=== PATIENT | male | born 1985 | race Hispanic/Latino ===

== ENCOUNTER 2019-02-08 16:20 | Emergency (ER) | payer SELFPAY ==
--- OUTSIDE RECORDS SUMMARY | 2019-02-08 16:22 | XMS REPORT ---
:1985 [facility] Address [address] Carmichael [address] [place] [id number] Care Team Providers Name Role Phone Unavailable Unavailable Unavailable Problems This patient has no known problems. Allergies, Adverse Reactions, Alerts This patient has no known allergies or adverse reactions. Medications This patient has no known medications.
[2019-02-08] MEDS ORDERED: IBUPROFEN 400 MG TAB ONE (16:42)
[2019-02-08] MEDS ORDERED: HYDROCODONE/APAP 7.5/325 MG TAB ONE (16:42)
--- NOTE | 2019-02-08 17:33 | RAD REPORT ---
EXAM DESCRIPTION: RAD - Hand Left 3 View - 02/08/2019 5:23 pm CLINICAL HISTORY: crush injury;Pain COMPARISON: No comparisons FINDINGS: Fracture is present involving the proximal aspect of the proximal phalanx of the second fi nger. Mild adjacent soft tissue swelling.
--- NOTE | 2019-02-08 17:59 | ER ---
Nurse's Notes [facility] Name: Celso Resendiz Age: 33 yrs Sex: Male : 1985 Arrival Date: 02/08/2019 Time: 16:22 Bed 14 Private MD: Diagnosis: Nondisplaced fracture of proximal phalanx of right index finger Presentation: 02/08 16:27 Presenting complaint: Patient states: dropped a 65lb piece of metal on L hand approx ch 1400. Transition of care: patient was not received from another setting of care. Onset of symptoms was February 08, 2019 at 14:00. Risk Assessment: Do you want to hurt yourself or someone else? Patient reports no desire to harm self or others. Initial Sepsis Screen: Does the patient meet any 2 criteria? No. Patient's initial sepsis screen is negative. Does the patient have a suspected source of infection? No. Patient's initial sepsis screen is negative. Care prior to arrival: None. 16:27 Method Of Arrival: Ambulatory 16:27 Acuity: ELENA 4 ch Triage Assessment: 16:29 General: Appears in no apparent distress. uncomfortable, Behavior is calm, cooperative, ch appropriate for age. Pain: Complains of pain in left hand Pain currently is 8 out of 10 on a pain scale. Musculoskeletal: Capillary refill < 3 seconds, in bilateral fingers. toes. Range of motion: limited in MCP of left middle finger, PIP of left index finger and MCP of left index finger Swelling present in left hand. Injury Description: Crush injury sustained to left hand was sustained 2-4 hours ago. Historical: - Allergies: 16:29 Tramadol HCl; causes migranes; - Home Meds: 16:29 None [Active]; ch - PMHx: 16:29 None; - PSHx: 16:29 Hernia repair; Appendectomy; Tonsillectomy; - Immunization history:: Adult Immunizations up to date, Last tetanus immunization: > 10 years ago Flu vaccine is not up to date. - Social history:: Smoking status: Patient/guardian denies using tobacco. - Ebola Screening: : Patient negative for fever greater than or equal to 101.5 degrees Fahrenheit, and additional compatible Ebola Virus Disease symptoms Patient denies exposure to infectious person Patient denies travel to an Ebola-affected area in the 21 days before illness onset No symptoms or risks identified at this time. Screenin:43 Abuse screen: Denies threats or abuse. Denies injuries from another. Nutritional jl7 screening: No deficits noted. Tuberculosis screening: No symptoms or risk factors identified. Fall Risk None identified. Assessment: 16:43 General: Appears in no apparent distress. uncomfortable, Behavior is calm, cooperative, jl7 appropriate for age. Pain: Complains of pain in left hand Pain currently is 9 out of 10 on a pain scale. Neuro: Level of Consciousness is awake, alert, obeys commands, Oriented to person, place, time, situation. Cardiovascular: Patient's skin is warm and dry. Respiratory: Airway is patent Respiratory effort is even, unlabored, Respiratory pattern is regular, symmetrical. Derm: Skin is pink, warm \T\ dry. Musculoskeletal: Range of motion: limited in DIP of left index finger, PIP of left index finger and MCP of left index finger Swelling present in palmar aspect of proximal phalanx of left index finger and palm of left hand. 16:46 Reassessment: ice pack applied to injury. jl7 17:33 Reassessment: Patient appears in no apparent distress at this time. No changes from jl7 previously documented assessment. Pt reports unchanged pain, ERP notified, no new orders at this time. Vital Signs: 16:29 BP 135 / 86; Pulse 78; Resp 16; Temp 98.5; Pulse Ox 99% on R/A; Weight 74.39 kg; Height ch 6 ft. 2 in. (187.96 cm); Pain 8/10; 17:45 BP 130 / 85; Pulse 75; Resp 16 S; Pulse Ox 100% on R/A; jl7 16:29 Body Mass Index 21.06 (74.39 kg, 187.96 cm) ED Course: 16:22 Patient arrived in ED. as 16:23 Braxton Herrmann PA is PHCP. cp 16:23 Drew Wilkerson MD is Attending Physician. cp 16:28 Triage completed. 16:29 Arm band placed on left wrist. Patient placed in an exam room, on a stretcher. 16:39 Luna Parker RN is Primary Nurse. jl7 16:43 Patient has correct armband on for positive identification. Bed in low position. Call [facility] light in reach. Side rails up X 1. 17:26 XRAY Hand LEFT 3 View In Process Unspecified. EDMS 17:57 Tong Shepard MD is Referral Physician. cp 18:00 Orthoglass splint: finger. jl7 18:08 No provider procedures requiring assistance completed. Patient did not have IV access jl7 during this emergency room visit. Administered Medications: 16:43 Drug: Hydrocodone-Acetaminophen (7.5 mg-500 mg) 1 tabs Route: PO; jl7 17:31 Follow up: Response: No adverse reaction; Pain is unchanged, physician notified jl7 16:43 Drug: Ibuprofen 800 mg Route: PO; jl7 17:31 Follow up: Response: Pain is unchanged, physician notified jl7 Outcome: 17:58 Discharge ordered by MD. cp 18:14 Discharged to home jl7 18:14 Condition: stable 18:14 Discharge instructions given to patient, Instructed on discharge instructions, follow up and referral plans. medication usage, Demonstrated understanding of instructions, follow-up care, medications, Prescriptions given X 1. 18:16 Patient left the ED. jl7 Signatures: Dispatcher [employer] EDLela Ryan, RN RN Melinda Christensen Corey, PA PA Luna Russo, RN RN jl7
--- NOTE | 2019-02-08 17:59 | EDPHYS ---
Physician Documentation [facility] Name: Celso Resendiz Age: 33 yrs Sex: Male : 1985 Arrival Date: 02/08/2019 Time: 16:22 Bed 14 Private MD: ED Physician Drew Wilkerson HPI: 02/08 16:45 This 33 yrs old Male presents to ER via Ambulatory with complaints of Hand cp Injury. 16:45 The patient or guardian reports injury, pain, swelling, tenderness. The complaints cp affect the right index finger and second metacarpal. Onset: The symptoms/episode began/occurred just prior to arrival. 16:45 Context: resulted from direct blow from dropped 65 lb piece of metal. cp 16:45 Associated signs and symptoms: Pertinent negatives: cyanosis distally, decreased cp sensation distally. Historical: - Allergies: 16:29 Tramadol HCl; causes migranes; ch - Home Meds: 16:29 None [Active]; ch - PMHx: 16:29 None; ch - PSHx: 16:29 Hernia repair; Appendectomy; Tonsillectomy; ch - Immunization history:: Adult Immunizations up to date, Last tetanus immunization: > 10 years ago Flu vaccine is not up to date. - Social history:: Smoking status: Patient/guardian denies using tobacco. - Ebola Screening: : Patient negative for fever greater than or equal to 101.5 degrees Fahrenheit, and additional compatible Ebola Virus Disease symptoms Patient denies exposure to infectious person Patient denies travel to an Ebola-affected area in the 21 days before illness onset No symptoms or risks identified at this time. ROS: 17:00 Constitutional: Negative for body aches, chills, fever, poor PO intake. cp 17:00 Respiratory: Negative for cough, shortness of breath, wheezing. cp 17:00 Abdomen/GI: Negative for abdominal pain. 17:00 MS/extremity: Positive for injury or acute deformity, decreased range of motion, pain, of the dorsum left hand and MCP of left index finger and PIP of left index finger. 17:00 Neuro: Negative for altered mental status, headache, numbness, tingling, weakness. 17:00 All other systems are negative. Exam: 17:10 Constitutional: The patient appears in no acute distress, alert, awake, well developed, cp well nourished, uncomfortable. 17:10 Head/Face: Normocephalic, atraumatic. cp 17:10 Eyes: Periorbital structures: appear normal, Conjunctiva: normal, no exudate, no injection, Lids and lashes: appear normal, bilaterally. 17:10 ENT: External ear(s): are unremarkable, Nose: is normal, Mouth: is normal, Posterior pharynx: is normal, airway is patent, no erythema, no exudate. 17:10 Chest/axilla: Inspection: normal. 17:10 Cardiovascular: Rate: normal. 17:10 Respiratory: the patient does not display signs of respiratory distress, Respirations: normal, no use of accessory muscles, no retractions, no splinting, no tachypnea. 17:10 Musculoskeletal/extremity: Extremities: grossly normal except: noted in the MCP of left index finger and PIP of left index finger and dorsum left hand: Perfusion: the extremity is normally perfused throughout, Sensation intact. swelling proximal phalanx left index finger. 17:10 Musculoskeletal/extremity: ROM: limited active range of motion, in the left index finger. 17:10 Skin: intact. 17:10 Neuro: Sensation: Vital Signs: 16:29 BP 135 / 86; Pulse 78; Resp 16; Temp 98.5; Pulse Ox 99% on R/A; Weight 74.39 kg; Height ch 6 ft. 2 in. (187.96 cm); Pain 8/10; 17:45 BP 130 / 85; Pulse 75; Resp 16 S; Pulse Ox 100% on R/A; jl7 16:29 Body Mass Index 21.06 (74.39 kg, 187.96 cm) Procedures: 18:00 Splinting: Splint applied to left index and middle fingers using Orthoglass splint, cp sugar tong type. applied by nurse. Examined by me, post splint application: neurovascular intact, Patient tolerated well. MDM: 16:35 Patient medically screened. cp 17:57 Data reviewed: vital signs, nurses notes, radiologic studies, plain films. cp 17:57 Test interpretation: by ED physician or midlevel provider: xrays of left hand show cp proximal phalanx fracture left index finger. Counseling: I had a detailed discussion with the patient and/or guardian regarding: the historical points, exam findings, and any diagnostic results supporting the discharge/admit diagnosis, radiology results, the need for outpatient follow up, for definitive care, a hand specialist, to return to the emergency department if symptoms worsen or persist or if there are any questions or concerns that arise at home. Response to treatment: the patient's symptoms have markedly improved after treatment, and as a result, I will discharge patient. 02/08 17:02 Order name: XRAY Hand LEFT 3 View; Complete Time: 17:57 cp 02/08 18:07 Order name: Splint - Finger: orthoglass; Complete Time: 18:08 jl7 Administered Medications: 16:43 Drug: Hydrocodone-Acetaminophen (7.5 mg-500 mg) 1 tabs Route: PO; jl7 17:31 Follow up: Response: No adverse reaction; Pain is unchanged, physician notified jl7 16:43 Drug: Ibuprofen 800 mg Route: PO; jl7 17:31 Follow up: Response: Pain is unchanged, physician notified jl7 Disposition: 18:25 Chart complete. cp 18:49 Co-signature as Attending Physician, Drew Wilkerson MD. rn Disposition: 02/08/19 17:58 Discharged to Home. Impression: Nondisplaced fracture of proximal phalanx of right index finger. - Condition is Stable. - Discharge Instructions: Finger Fracture. - Prescriptions for Ibuprofen 800 mg Oral Tablet - take 1 tablet by ORAL route every 8 hours As needed take with food; 30 tablet. Tylenol- Codeine #3 300-30 mg Oral Tablet - take 2 tablets by ORAL route every 6 hours As needed no driving while taking medication; 20 tablet. - Medication Reconciliation Form, Thank You Letter, Antibiotic Education, Prescription Opioid Use, Work release form form. - Follow up: Tong Shepard MD; When: 1 - 2 days; Reason: Recheck today's complaints. - Problem is new. - Symptoms have improved. Signatures: Dispatcher [employer] Lela Hamilton RN RN ch Nieto, Roman, MD MD rn Page, Corey, PA PA cp Leal, Jahala, RN RN jl7 Corrections: (The following items were deleted from the chart) 18:16 17:58 02/08/2019 17:58 Discharged to Home. Impression: Nondisplaced fracture of jl7 proximal phalanx of right index finger. Condition is Stable. Forms are Medication Reconciliation Form, Thank You Letter, Antibiotic Education, Prescription Opioid Use. Follow up: Tong Shepard; When: 1 - 2 days; Reason: Recheck today's complaints. Problem is new. Symptoms have improved. cp
== END 2019-02-08 18:16 | disposition home or self-care (01) ==
LOC: ER 16:20
PROC: 2W3KX1Z Immobilization of Left Finger using Splint (ICD-10-PCS; principal; 2019-02-08)
DX: S62.641A Nondisplaced fracture of proximal phalanx of left index finger, initial encounter for closed fracture (principal); X58.XXXA Exposure to other specified factors, initial encounter; Y93.9 Activity, unspecified; Y92.9 Unspecified place or not applicable; Z88.6 Allergy status to analgesic agent
CPT/HCPCS: 99284

== ENCOUNTER 2019-02-19 21:43 | Emergency (ER) | payer SELFPAY ==
--- OUTSIDE RECORDS SUMMARY | 2019-02-19 21:45 | XMS REPORT ---
:1985 [facility] Address [address] Carmichael [address] [place] [id number] Care Team Providers Name Role Phone Unavailable Unavailable Unavailable Problems This patient has no known problems. Allergies, Adverse Reactions, Alerts This patient has no known allergies or adverse reactions. Medications This patient has no known medications.
[2019-02-19] MEDS ORDERED: KETOROLAC 30 MG/ML INJ ONE (22:22)
--- NOTE | 2019-02-19 22:25 | ER ---
Nurse's Notes [facility] Name: Celso Resendiz Age: 33 yrs Sex: Male : 1985 Arrival Date: 02/19/2019 Time: 21:48 Bed 10 Private MD: Diagnosis: Displaced fracture of proximal phalanx of left index finger Presentation: 02/19 21:55 Presenting complaint: Patient states: increased pain to left index finger. pt was seen ak1 on 02/08/19 for work related injury. pt seen by company PCP with no new pain medication given. pt stated he finished the tylenol #3 that the ER gave him. pt continues to have pain. Transition of care: patient was not received from another setting of care. Onset of symptoms is unknown. Risk Assessment: Do you want to hurt yourself or someone else? Patient reports no desire to harm self or others. Initial Sepsis Screen: Does the patient meet any 2 criteria? No. Patient's initial sepsis screen is negative. Does the patient have a suspected source of infection? No. Patient's initial sepsis screen is negative. Care prior to arrival: None. 21:55 Method Of Arrival: Ambulatory ak1 21:55 Acuity: ELENA 4 ak1 Triage Assessment: 21:57 General: Appears in no apparent distress. Behavior is calm, cooperative. ak1 22:16 Injury Description: pt reported braking finger earlier in the week. jd3 Historical: - Allergies: 21:57 Tramadol HCl; causes migranes; ak1 - Home Meds: 21:57 None [Active]; ak1 - PMHx: 21:57 None; ak1 - PSHx: 21:57 Hernia repair; Appendectomy; Tonsillectomy; ak1 - Immunization history:: Adult Immunizations unknown. - Social history:: Smoking status: Patient uses tobacco products, smokes one pack cigarettes per day. - Ebola Screening: : No symptoms or risks identified at this time. Screenin:16 Abuse screen: Denies threats or abuse. Nutritional screening: No deficits noted. jd3 Tuberculosis screening: No symptoms or risk factors identified. Fall Risk Ambulatory Aid- None/Bed Rest/Nurse Assist (0 pts). Gait- Normal/Bed Rest/Wheelchair (0 pts) Mental Status- Oriented to own ability (0 pts). Total Rodriguez Fall Scale indicates No Risk (0-24 pts). Assessment: 22:15 General: Appears in no apparent distress. uncomfortable, Behavior is calm, cooperative, jd3 appropriate for age. Pain: Complains of pain in right index finger Quality of pain is described as aching, tender, throbbing. Neuro: Level of Consciousness is awake, alert, obeys commands, Oriented to person, place, time, situation. Cardiovascular: Capillary refill < 3 seconds Patient's skin is warm and dry. Respiratory: Airway is patent Respiratory effort is even, unlabored, Respiratory pattern is regular, symmetrical. GI: No signs and/or symptoms were reported involving the gastrointestinal system. : No signs and/or symptoms were reported regarding the genitourinary system. EENT: No signs and/or symptoms were reported regarding the EENT system. Derm: Skin is intact, Skin is dry, Skin is normal, Skin temperature is warm. Musculoskeletal: Circulation, motion, and sensation intact. Range of motion: intact in all extremities, Swelling present in left index finger. 22:50 Reassessment: Patient appears in no apparent distress at this time. Patient and/or jd3 family updated on plan of care and expected duration. Pain level reassessed. Patient is alert, oriented x 3, equal unlabored respirations, skin warm/dry/pink. reported understanding of discharge instructions. Patient states feeling better. Vital Signs: 21:57 BP 113 / 77; Pulse 82; Resp 16; Temp 97.6; Pulse Ox 99% on R/A; Weight 74.84 kg (R); ak1 Height 6 ft. 2 in. (187.96 cm) (R); Pain 8/10; 21:57 Body Mass Index 21.18 (74.84 kg, 187.96 cm) ak1 ED Course: 21:48 Patient arrived in ED. cl3 21:57 Triage completed. ak1 21:57 Arm band placed on Patient placed in an exam room, on a stretcher, Patient notified of ak1 wait time. 22:01 Farhan Haywood MD is Attending Physician. tw4 22:15 Kaushik Lai RN is Primary Nurse. jd3 22:17 Patient has correct armband on for positive identification. Bed in low position. Call jd3 light in reach. Side rails up X 1. 22:25 Daniel Hamilton MD is Referral Physician. tw4 22:37 No provider procedures requiring assistance completed. Patient did not have IV access jd3 during this emergency room visit. 22:37 Aluminum finger splint applied to left index finger. jd3 Administered Medications: 22:37 Drug: TORadol 60 mg Route: IM; Site: right gluteus; jd3 22:49 Follow up: Response: No adverse reaction jd3 Outcome: 22:24 Discharge ordered by . tw4 22:49 Discharged to home ambulatory. jd3 22:49 Condition: stable 22:49 Discharge instructions given to patient, Instructed on discharge instructions, follow up and referral plans. medication usage, Demonstrated understanding of instructions, follow-up care, medications, Prescriptions given X 2. 22:50 Patient left the ED. jd3 Signatures: Emilie Naidu RN RN ak1 Kaushik Lai RN RN jd3 Farhan Haywood MD MD tw4 Rena Parker cl3
--- NOTE | 2019-02-19 22:26 | EDPHYS ---
Physician Documentation [facility] Name: Celso Resendiz Age: 33 yrs Sex: Male : 1985 Arrival Date: 02/19/2019 Time: 21:48 Bed 10 Private MD: ED Physician Farhan Haywood HPI: 02/19 22:20 This 33 yrs old Male presents to ER via Ambulatory with complaints of Finger tw4 Injury. 22:20 The patient or guardian reports deformity, injury, pain. The complaints affect the DIP tw4 of left index finger, PIP of left index finger and MCP of left index finger. Context: The problem was sustained at work, resulted from a direct blow. Onset: The symptoms/episode began/occurred 10 day(s) ago. Modifying factors: The symptoms are alleviated by tylenol #3. Associated signs and symptoms: The patient has no apparent associated signs or symptoms. The patient has not experienced similar symptoms in the past. The patient has been recently seen at the [facility] Emergency Department, a couple of weeks ago, for similar complaints X-rays were performed, was given a prescription for pain medications. Historical: - Allergies: 21:57 Tramadol HCl; causes migranes; ak1 - Home Meds: 21:57 None [Active]; ak1 - PMHx: 21:57 None; ak1 - PSHx: 21:57 Hernia repair; Appendectomy; Tonsillectomy; ak1 - Immunization history:: Adult Immunizations unknown. - Social history:: Smoking status: Patient uses tobacco products, smokes one pack cigarettes per day. - Ebola Screening: : No symptoms or risks identified at this time. ROS: 22:20 Constitutional: Negative for fever, chills, and weight loss, Eyes: Negative for injury, tw4 pain, redness, and discharge, Neck: Negative for injury, pain, and swelling, Cardiovascular: Negative for chest pain, palpitations, and edema, Respiratory: Negative for shortness of breath, cough, wheezing, and pleuritic chest pain, Abdomen/GI: Negative for abdominal pain, nausea, vomiting, diarrhea, and constipation, Skin: Negative for injury, rash, and discoloration, Neuro: Negative for headache, weakness, numbness, tingling, and seizure. 22:20 MS/extremity: Positive for injury or acute deformity, pain, tenderness. Exam: 22:20 Constitutional: This is a well developed, well nourished patient who is awake, alert, tw4 and in no acute distress. Head/Face: Normocephalic, atraumatic. Chest/axilla: Normal chest wall appearance and motion. Nontender with no deformity. No lesions are appreciated. Cardiovascular: Regular rate and rhythm with a normal S1 and S2. No gallops, murmurs, or rubs. Normal PMI, no JVD. No pulse deficits. Respiratory: Lungs have equal breath sounds bilaterally, clear to auscultation and percussion. No rales, rhonchi or wheezes noted. No increased work of breathing, no retractions or nasal flaring. Abdomen/GI: Soft, non-tender, with normal bowel sounds. No distension or tympany. No guarding or rebound. No evidence of tenderness throughout. Back: No spinal tenderness. No costovertebral tenderness. Full range of motion. 22:20 Musculoskeletal/extremity: Extremities: noted in the dorsal aspect of middle phalanx of left index finger, dorsal aspect of proximal phalanx of left index finger, palmar aspect of distal phalanx of left index finger, palmar aspect of middle phalanx of left index finger and palmar aspect of proximal phalanx of left index finger: decreased ROM, deformity, pain, swelling, tenderness, There is no evidence of abrasion, bite, ecchymosis, erythema, laceration, puncture, rash, ROM: limited active range of motion due to pain, limited passive range of motion due to pain, Circulation is intact in all extremities. Vital Signs: 21:57 BP 113 / 77; Pulse 82; Resp 16; Temp 97.6; Pulse Ox 99% on R/A; Weight 74.84 kg (R); ak1 Height 6 ft. 2 in. (187.96 cm) (R); Pain 8/10; 21:57 Body Mass Index 21.18 (74.84 kg, 187.96 cm) ak1 Procedures: 22:20 Splinting: Splint applied to dorsal aspect of middle phalanx of left index finger, tw4 dorsal aspect of proximal phalanx of left index finger and left index fingernail using finger splint, applied by nurse. Examined by me, post splint application: neurovascular intact, 2+ distal pulses palpable, brisk capillary refill noted, Patient tolerated well. MDM: 22:01 Patient medically screened. tw4 22:20 Differential diagnosis: open fracture, closed fracture, contusion. Data reviewed: vital tw4 signs, nurses notes. Counseling: I had a detailed discussion with the patient and/or guardian regarding: the historical points, exam findings, and any diagnostic results supporting the discharge/admit diagnosis, the need for outpatient follow up, a hand specialist, a orthopedic surgeon. Special discussion: I discussed with the patient/guardian in detail that at this point there is no indication for admission to the hospital. It is understood, however, that if the symptoms persist or worsen the patient needs to return immediately for re-evaluation. 02/19 22:13 Order name: Splint - Finger; Complete Time: 22:37 tw4 Administered Medications: 22:37 Drug: TORadol 60 mg Route: IM; Site: right gluteus; jd3 22:49 Follow up: Response: No adverse reaction jd3 Disposition: 02/19/19 22:24 Discharged to Home. Impression: Displaced fracture of proximal phalanx of left index finger. - Condition is Stable. - Discharge Instructions: Finger Fracture, [id number]. - Prescriptions for Ibuprofen 800 mg Oral Tablet - take 1 tablet by ORAL route every 8 hours As needed take with food; 30 tablet. Tylenol- Codeine #3 300-30 mg Oral Tablet - take 2 tablet by ORAL route every 6 hours As needed; 6 tablet. - Medication Reconciliation Form, Thank You Letter, Antibiotic Education, Prescription Opioid Use form. - Follow up: Private Physician; When: Upon discharge from the Emergency Department; Reason: If symptoms return, Recheck today's complaints, Continuance of care. Follow up: Daniel Hamilton MD; When: Today; Reason: If symptoms return, Recheck today's complaints, Continuance of care. - Problem is new. - Symptoms have improved. Signatures: Emilie Naidu RN RN ak1 Kaushik Lai RN RN jd3 Farhan Haywood MD MD tw4 Corrections: (The following items were deleted from the chart) 22:26 22:24 02/19/2019 22:24 Discharged to Home. Impression: Displaced fracture of proximal tw4 phalanx of left index finger. Condition is Stable. Forms are Medication Reconciliation Form, Thank You Letter, Antibiotic Education, Prescription Opioid Use. Follow up: Private Physician; When: Upon discharge from the Emergency Department; Reason: If symptoms return, Recheck today's complaints, Continuance of care. Problem is new. Symptoms have improved. tw4 22:50 22:26 02/19/2019 22:24 Discharged to Home. Impression: Displaced fracture of proximal jd3 phalanx of left index finger. Condition is Stable. Discharge Instructions: Finger Fracture, [id number]-Size. Prescriptions for Ibuprofen 800 mg Oral Tablet - take 1 tablet by ORAL route every 8 hours As needed take with food; 30 tablet, Tylenol-Codeine #3 300-30 mg Oral Tablet - take 2 tablet by ORAL route every 6 hours As needed; 6 tablet. and Forms are Medication Reconciliation Form, Thank You Letter, Antibiotic Education, Prescription Opioid Use. Follow up: Private Physician; When: Upon discharge from the Emergency Department; Reason: If symptoms return, Recheck today's complaints, Continuance of care. Follow up: Daniel Hamilton; When: Today; Reason: If symptoms return, Recheck today's complaints, Continuance of care. Problem is new. Symptoms have improved. tw4
[2019-02-20 00:44] VITALS: BP 113/77; TEMP 97.6; O2SAT 99
== END 2019-02-19 22:50 | disposition home or self-care (01) ==
LOC: ER 21:43
PROC: 2W3KX1Z Immobilization of Left Finger using Splint (ICD-10-PCS; principal; 2019-02-19)
DX: S62.611A Displaced fracture of proximal phalanx of left index finger, initial encounter for closed fracture (principal); X58.XXXA Exposure to other specified factors, initial encounter; Y93.9 Activity, unspecified; Y92.89 Other specified places as the place of occurrence of the external cause; Y99.8 Other external cause status; Z88.5 Allergy status to narcotic agent; F17.210 Nicotine dependence, cigarettes, uncomplicated
CPT/HCPCS: 96372; 99283

== ENCOUNTER 2024-10-21 11:05 | Inpatient (IN) | payer SELFPAY ==
--- OUTSIDE RECORDS SUMMARY | 2024-10-21 11:08 | XMS REPORT | Continuity of Care Document ---
Author Name Unknown Address [address] [place] [address] [place] [address]. [address] [place] [address] Care Team Providers Care Tie Man Name Role Phone Unavailable Unavailable Unavailable
[2024-10-21] MEDS ORDERED: KETOROLAC 30 MG/ML INJ ONE (12:49)
[2024-10-21] MEDS ORDERED: NA CHLORIDE 0.9% 1,000 ML ONE ×2 (12:49→17:22)
[2024-10-21] MEDS ORDERED: ONDANSETRON 4 MG/2 ML VIAL ONE (12:49)
[2024-10-21 13:04] LABS: Specific Gravity > 1.030 (1.005-1.030); Urine Clarity Clear (Clear); Urine Color Yellow (Yellow); Urine Glucose Negative (Negative)
[2024-10-21 13:05] LABS: Sqamous Epithelial <5 /HPF (None Seen); Urine Bacteria <20 /HPF (<20); Urine Bilirubin NEGATIVE (Negative); Urine Blood Negative (Negative); Urine Culture Reflex Order NOT NEEDED; Urine Ketones Negative (Negative); Urine Microscopic Reflex YN ORDER UMIC; Urine Mucus 1+ /HPF (None Seen); Urine Nitrite Negative (Negative); Urine Protein 1+ (Negative); Urine RBC <5 /HPF (None Seen); Urine Urobilinogen Normal mg/dL (0.2-1.0); Urine WBC <5 /HPF (<5); Urine pH 5.5 (5.0-7.0)
[2024-10-21 13:13] LABS: Absolute Basophils 0.1 K/uL (0-0.5); Absolute Eosinophils 0.2 K/uL (0-0.5); Absolute Lymphocytes (CBC) 2.2 K/uL (0.7-4.9); Absolute Monocytes 1.4 K/uL (0.1-1.3); Absolute Neutrophil 11.4 K/uL (1.8-8.0); Basophils % 0.7 % (0-1.3); Eosinophils % 1.2 % (0-4.4); Hematocrit 44.4 % (39.6-49.0); Hemoglobin 15.8 g/dL (13.6-17.9); Lymphocytes % 14.5 % (15.3-44.8); MCH 31.3 pg (27.0-35.0); MCHC 35.5 g/dL (32.0-36.0); MCV 88.3 fL (80-100); MPV 9.7 fL (7.6-11.3); Monocytes % 9.1 % (3.3-12.3); Neutrophils % 74.5 % (41.7-73.7); Nucleated Red Blood Cells % 0.1 % (0-0); Platelets 305 thou/uL (152-406); RBC Red Blood Cell Count 5.03 M/uL (4.33-5.43); Red Cell Distribution Width 13.4 % (12.1-15.2)
[2024-10-21 13:26] LABS: Albumin 3.8 g/dL (3.4-5.0); Albumin/Globulin Ratio 0.9 (1.1-1.8); Anion Gap 10.5 mEq/L (5.0-15.0); Bilirubin Total 1.8 mg/dL (0.2-1.0); Globulin 4.1 g/dL (2.3-3.5); Potassium 3.5 mEq/L (3.5-5.1); Protein, Total 7.9 g/dL (6.4-8.2)
--- NOTE | 2024-10-21 14:38 | RAD REPORT ---
EXAMINATION: Abdomen Pelvis W Contrast CLINICAL INDICATION: Male, 39 years old.ABD PAIN TECHNIQUE: CT abdomen and pelvis was performed, after the administration of IV contrast, as per [facility] protocol. Axial, sagittal and coronal reconstructions were obtained. One or more of the following dose reduction techniques were used: Automated exposure control, adjustment of the mA and/o r kV according to patient size, and/or iterative reconstruction. Unless otherwise specified, incidental findings do not require dedicated imaging follow-up. [id number]. COMPARISON: 01/17/2015 FINDINGS: LOWER CHEST: No acute process identified.No significant pericardial effusion. UPPER GI: No significant abnormality. LIVER: No significant focal abnormality. GALLBLADDER/BILE DUCTS: No biliary ductal dilatation.? PANCREAS: No mass, ductal dilation, or saarh-pancreatic fluid. SPLEEN: Unremarkable. ADRENALS: 17 mm right adrenal nodule which has increased in size since 2014, previously 9 mm. Though the size has increased, the 10 year interval is highly reassuring for benign process. KIDNEYS AND URETERS: No hydronephrosis.No suspicious renal mass.Nonobstructing renal calculi. ABDOMINAL AORTA AND OTHER VESSELS: Normal caliber aorta and IVC. PERITONEUM: No abnormal free fluid. No free air. LYMPH NODES: No pathologic lymphadenopathy. ABDOMINAL WALL: Small fat-containing right inguinal hernia. SMALL BOWEL/COLON: Premature changes at the mid sigmoid colon with tiny extraluminal locules of gas c onsistent with a microperforation. No abscess. No bowel obstruction.Appendix absent. URINARY BLADDER: Underdistended but grossly unremarkable. REPRODUCTIVE ORGANS: No pathologic process. MUSCULOSKELETAL: No acute or suspicious osseous abnormality. ADDITIONAL FINDINGS: None. IMPRESSION: Sigmoid diverticulitis with localized microperforation. No abscess or bowel obstruction. THIS REPORT CONTAINS FINDINGS THAT MAY BE CRITICAL TO PATIENT CARE. The emergent findings were commun icated to Vaishnavi Barboza NP on 10/21/2024 2:35 PM.
[2024-10-21] MEDS ORDERED: PIPERACIL/TAZO 3.375 GM VIAL IV ONE (14:52)
[2024-10-21] MEDS ORDERED: NA CHLORIDE 0.9% 100 ML ONE (14:52)
[2024-10-21] MEDS ORDERED: MORPHINE 4 MG/ML SYR ONE (14:56)
--- NOTE | 2024-10-21 15:00 | ER ---
Nurse's Notes [facility] Name: Celso Resendiz Age: 39 yrs Sex: Male : 1985 Arrival Date: 10/21/2024 Time: 11:05 Bed 17 Private MD: Diagnosis: Sigmoid diverticulitis with localized microperforation Presentation: 10/21 11:35 Chief complaint: Patient states: RLQ abdominal pain onset 3 days ago. Pt reports cm10 diarrhea. Pt also states having pressure when urinating. Coronavirus screen: Client denies travel out of the [place] in the last 14 days. Ebola Screen: No symptoms or risks identified at this time. Initial Sepsis Screen: Does the patient meet any 2 criteria? HR > 90 bpm. Does the patient have a suspected source of infection? No. Patient's initial sepsis screen is negative. Risk Assessment: Do you want to hurt yourself or someone else? Patient reports no desire to harm self or others. Onset of symptoms was October 18, 2024. 11:35 Method Of Arrival: Ambulatory cm10 11:35 Acuity: ELENA 3 cm10 Triage Assessment: 11:37 General: Appears in no apparent distress. uncomfortable, Behavior is calm, cooperative. cm10 Pain: Complains of pain in umbilical area and right lower quadrant Pain currently is 8 out of 10 on a pain scale. Quality of pain is described as sharp, shooting. Neuro: No deficits noted. Level of Consciousness is awake, alert, obeys commands, Oriented to person, place, time, situation, Appropriate for age. Respiratory: No deficits noted. Airway is patent Respiratory effort is even, unlabored, Respiratory pattern is regular, symmetrical. GI: Abdomen is tender to palpation in right lower quadrant Reports lower abdominal pain, diarrhea. Historical: - Allergies: 11:37 Tramadol HCl; causes migranes; cm10 - PMHx: 11:37 None; cm10 - PSHx: 11:37 Appendectomy; Hernia Repair; cm10 - Immunization history:: Adult Immunizations up to date. - Infectious Disease History:: Denies. - Social history:: Smoking status: Reported history of juuling and/or vaping. Screenin:07 [facility] ED Fall Risk Assessment (Adult) History of falling in the last 3 months, mb9 including since admission No falls in past 3 months (0 pts) Confusion or Disorientation No (0 pts) Intoxicated or Sedated No (0 pts) Impaired Gait No (0 pts) Mobility Assist Device Used No (0 pt) Altered Elimination No (0 pt) Score/Fall Risk Level 0 - 2 = Low Risk Oriented to surroundings, Maintained a safe environment, Educated pt \T\ family on fall prevention, incl call for assistance when getting out of bed. Abuse screen: Denies threats or abuse. Nutritional screening: No deficits noted. Tuberculosis screening: No symptoms or risk factors identified. Assessment: 13:05 General: Appears in no apparent distress. Behavior is calm, cooperative. Pain: mb9 Complains of pain in abdomen Pain radiates to right lower quadrant Quality of pain is described as sharp, shooting, Pain began gradually, Is continuous. Neuro: Torres Agitation-Sedation Scale (RASS): 0 - Alert and Calm Level of Consciousness is awake, alert, obeys commands, Oriented to person, place, time, situation, Appropriate for age. Cardiovascular: Patient's skin is warm and dry. Respiratory: Airway is patent Respiratory effort is even, unlabored, Respiratory pattern is regular, symmetrical. GI: Abdomen is round Bowel sounds present X 4 quads. Abd is soft Abdomen is tender to palpation in right lower quadrant Reports diarrhea, nausea. : No signs and/or symptoms were reported regarding the genitourinary system. EENT: No signs and/or symptoms were reported regarding the EENT system. Derm: Skin is pink, warm \T\ dry. Musculoskeletal: Range of motion: intact in all extremities. 15:07 Reassessment: No changes from previously documented assessment. Patient and/or family mb9 updated on plan of care and expected duration. Pain level reassessed. Patient is alert, oriented x 3, equal unlabored respirations, skin warm/dry/pink. 16:00 Reassessment: No changes from previously documented assessment. Patient and/or family mb9 updated on plan of care and expected duration. Pain level reassessed. Patient is alert, oriented x 3, equal unlabored respirations, skin warm/dry/pink. 17:00 Reassessment: See [facility] for further charting. mb9 Vital Signs: 11:35 BP 127 / 87; Pulse 99; Resp 18; Temp 98.8(O); Pulse Ox 96% on R/A; Weight 108.41 kg; cm10 Height 6 ft. 1 in. ; Pain 8/10; 13:53 BP 130 / 78; Pulse 88; Resp 18; Pulse Ox 98% on R/A; mb9 15:07 BP 114 / 69; Pulse 74; Resp 18; Pulse Ox 99% on R/A; mb9 17:00 BP 112 / 78; Pulse 78; Resp 18; Pulse Ox 100% on R/A; mb9 11:35 Body Mass Index 31.53 (108.41 kg, 185.42 cm) cm10 11:35 Pain Scale: Adult cm10 ED Course: 11:10 Patient arrived in ED. al6 11:11 Radha Barboza FNP [facility]. jh7 11:11 Vi Ch MD is Attending Physician. 7 11:37 Triage completed. cm10 11:37 Arm band placed on right wrist. Patient placed in waiting room. cm10 13:00 Initial lab(s) drawn, by ak, sent to lab. Inserted saline lock: 20 gauge antecubital 9 area, using aseptic technique. Blood collected. Flushed with 10 mL NS. 13:07 Tammy Jones, RN is Primary Nurse. 9 13:07 Placed in gown. Bed in low position. Call light in reach. Side rails up X 1. Provided 9 Education on: press call light if needing anything. Client placed on continuous cardiac and pulse oximetry monitoring. NIBP monitoring applied. 14:25 CT Abd/Pelvis - IV Contrast Only In Process Unspecified. EDMS 14:58 Celso Harding is Hospitalizing Provider. [facility] 18:54 No provider procedures requiring assistance completed. Patient admitted, IV remains in mb9 place. 18:55 Report received from Tammy Art RN. kj2 Administered Medications: 13:00 Drug: NS 0.9% IV 1000 ml IV at 1 bolus Per protocol; to be given as a bolus over 60 mb9 minutes Route: IV; Rate: 1 bolus; Site: right antecubital; 14:47 Follow up: Response: No adverse reaction; IV Status: Completed infusion 9 13:02 Drug: Ondansetron IVP 4 mg IVP once; over 2 minutes Route: IVP; Site: right antecubital;mb9 14:47 Follow up: Response: No adverse reaction 9 13:05 Drug: TORadol - Ketorolac IVP 15 mg IVP once Route: IVP; Site: right antecubital; mb9 14:47 Follow up: Response: No adverse reaction mb9 15:00 Drug: morphine IVP or IV 4 mg IVP once over 4 mins Route: IVP; Infused Over: 4 mins; mb9 Site: right antecubital; 16:42 Follow up: Response: No adverse reaction mb9 15:07 Drug: Piperacillin-Tazobactam IVPB 3.375 grams IVPB once over 60 mins; (mix in NS 100 mb9 mL) Route: IVPB; Infused Over: 60 mins; Site: right antecubital; 16:42 Follow up: Response: No adverse reaction; IV Status: Completed infusion mb9 Medication: 13:07 VIS not applicable for this client. mb9 Outcome: 14:59 Decision to Hospitalize by Provider. jh7 10/22 03:51 Admitted to ER Hold. Please see [facility] for further documentation. cp4 Condition: stable Instructed on the need for admit, 11:14 Patient left the ED. ss Signatures: Dispatcher [employer] EDMS Yaima Mae RN RN ss Radha Barboza, CROP SUPERVISOR CROP SUPERVISOR jh7 Tammy Jones RN RN mb9 Sujatha Keyes RN RN cm10 Lela Blank cp4 Denise Regan RN RN kj2 Jaja Last6
--- NOTE | 2024-10-21 15:00 | EDPHYS ---
Physician Documentation [facility] Name: Celso Resendiz Age: 39 yrs Sex: Male : 1985 Arrival Date: 10/21/2024 Time: 11:05 Bed 17 Private MD: ED Physician Vi hC HPI: 10/21 11:30 This 39 yrs old Male presents to ER via Ambulatory with complaints of jh7 Abdominal Pain. 11:30 39-year-old male with a past medical history of appendectomy and umbilical hernia jh7 repair presents to the ER complaining of lower abdominal pain for the past 3 days worse on the right lower quadrant. He also reports diarrhea and slight dysuria. He denies any fever, vomiting, constipation, chest pain, shortness of breath, or any other symptoms at this time.. Historical: - Allergies: 11:37 Tramadol HCl; causes migranes; cm10 - PMHx: 11:37 None; cm10 - PSHx: 11:37 Appendectomy; Hernia Repair; cm10 - Immunization history:: Adult Immunizations up to date. - Infectious Disease History:: Denies. - Social history:: Smoking status: Reported history of juuling and/or vaping. ROS: 11:30 Constitutional: Per HPI jh7 Exam: 11:30 Head/Face: Normocephalic, atraumatic. Eyes: Pupils equal round and reactive to light, 7 extra-ocular motions intact. Lids and lashes normal. Conjunctiva and sclera are non-icteric and not injected. Cornea within normal limits. Periorbital areas with no swelling, redness, or edema. Neck: Trachea midline, no thyromegaly or masses palpated, and no cervical lymphadenopathy. Supple, full range of motion without nuchal rigidity, or vertebral point tenderness. No Meningismus. Cardiovascular: Regular rate and rhythm with a normal S1 and S2. No gallops, murmurs, or rubs. Normal PMI, no JVD. No pulse deficits. Respiratory: Lungs have equal breath sounds bilaterally, clear to auscultation and percussion. No rales, rhonchi or wheezes noted. No increased work of breathing, no retractions or nasal flaring. Back: No spinal tenderness. No costovertebral tenderness. Full range of motion. Skin: Warm, dry with normal turgor. Normal color with no rashes, no lesions, and no evidence of cellulitis. MS/ Extremity: Pulses equal, no cyanosis. Neurovascular intact. Full, normal range of motion. Neuro: Awake and alert, GCS 15, oriented to person, place, time, and situation. Motor strength 5/5 in all extremities. Sensory grossly intact. Normal gait. 11:30 Constitutional: The patient appears alert, awake, in obvious pain, 11:30 Abdomen/GI: Inspection: abdomen appears normal, Bowel sounds: normal, Palpation: soft, moderate abdominal tenderness, in the right lower quadrant and left lower quadrant, Vital Signs: 11:35 BP 127 / 87; Pulse 99; Resp 18; Temp 98.8(O); Pulse Ox 96% on R/A; Weight 108.41 kg; cm10 Height 6 ft. 1 in. ; Pain 8/10; 13:53 BP 130 / 78; Pulse 88; Resp 18; Pulse Ox 98% on R/A; mb9 15:07 BP 114 / 69; Pulse 74; Resp 18; Pulse Ox 99% on R/A; mb9 17:00 BP 112 / 78; Pulse 78; Resp 18; Pulse Ox 100% on R/A; mb9 11:35 Body Mass Index 31.53 (108.41 kg, 185.42 cm) cm10 11:35 Pain Scale: Adult cm10 MDM: 11:11 Medical Screening Exam initiated [facility] 15:10 Differential diagnosis: appendicitis, diverticulitis, Peritonitis, Pyelonephritis, jh7 urinary tract infection. Data reviewed: vital signs, nurses notes, lab test result(s), radiologic studies, CT scan. Consideration of Admission/Observation Patient was admitted/placed on observation. Management of patient was discussed with the following: Hospitalist: Dr. Harding. Credit Portfolio Manager: Kolby Chang, General Surgery. I considered the following discharge prescriptions or medication management in the emergency department Medications were administered in the Emergency Department. See MAR. Counseling: I had a detailed discussion with the patient and/or guardian regarding the historical points, exam findings, and any diagnostic results supporting the discharge/admit diagnosis, the need for further work-up and treatment in the hospital. Response to treatment: the patient's symptoms have mildly improved after treatment. 10/21 11:30 Order name: CBC with Diff; Complete Time: 13:29 [facility] 10/21 11:30 Order name: CMP; Complete Time: 13:29 [facility] 10/21 11:30 Order name: Lipase; Complete Time: 13: [facility] 10/21 11:30 Order name: UA Rfx Óscar Cult if indicated; Complete Time: 13: [facility] 10/21 16:32 Order name: CBC with Automated Diff EDMS 10/21 16:32 Order name: CBC with Automated Diff EDMS 10/21 16:32 Order name: Comprehensive Metabolic Panel EDMS 10/21 16:32 Order name: Comprehensive Metabolic Panel EDMS 10/21 16:32 Order name: Magnesium EDMS 10/21 16:32 Order name: Magnesium EDMS 10/21 16:32 Order name: Phosphorus EDMS 10/21 16:33 Order name: Phosphorus EDMS 10/21 13:30 Order name: CT Abd/Pelvis - IV Contrast Only; Complete Time: 14:45 [facility] 10/21 16:32 Order name: CONS Physician Consult [facility] 10/21 11:30 Order name: IV Saline Lock; Complete Time: 13:04 [facility] 10/21 11:30 Order name: Labs collected and sent; Complete Time: 13:04 [facility] Administered Medications: 13:00 Drug: NS 0.9% IV 1000 ml IV at 1 bolus Per protocol; to be given as a bolus over 60 mb9 minutes Route: IV; Rate: 1 bolus; Site: right antecubital; 14:47 Follow up: Response: No adverse reaction; IV Status: Completed infusion mb9 13:02 Drug: Ondansetron IVP 4 mg IVP once; over 2 minutes Route: IVP; Site: right antecubital;mb9 14:47 Follow up: Response: No adverse reaction mb9 13:05 Drug: TORadol - Ketorolac IVP 15 mg IVP once Route: IVP; Site: right antecubital; mb9 14:47 Follow up: Response: No adverse reaction mb9 15:00 Drug: morphine IVP or IV 4 mg IVP once over 4 mins Route: IVP; Infused Over: 4 mins; mb9 Site: right antecubital; 16:42 Follow up: Response: No adverse reaction mb9 15:07 Drug: Piperacillin-Tazobactam IVPB 3.375 grams IVPB once over 60 mins; (mix in NS 100 mb9 mL) Route: IVPB; Infused Over: 60 mins; Site: right antecubital; 16:42 Follow up: Response: No adverse reaction; IV Status: Completed infusion mb9 Disposition Summary: 10/21/24 14:59 Hospitalization Ordered Notes: Hospitalization Status: Observation [facility] Provider: Celso Harding [facility] Condition: Stable [facility] Problem: new [facility] Symptoms: have improved [facility] Bed/Room Type: Standard [facility] Location: Telemetry/MedSurg (observation)(10/22/24 10:18) Room Assignment: [facility](10/22/24 10:18) Diagnosis - Sigmoid diverticulitis with localized microperforation [facility] Forms: - Medication Reconciliation Form [facility] - SBAR form [facility] - Leadership Thank You Letter [facility] Signatures: Dispatcher [employer] EDMS Marlena Mendez Shelby RN RN ss Khadra Waters RN RN cg Radha Barboza, TREATER TREATER [id number] Tammy Jones RN RN mb9 Sujatha Keyes RN RN cm10 Sabrina Venegas [facility] Corrections: (The following items were deleted from the chart) 11:30 11:30 CBC+H.LAB.BRZ ordered. EDMS EDMS 11:30 11:30 COMPREHENSIVE METABOLIC PANEL+C.LAB.BRZ ordered. EDMS EDMS 11:30 11:30 LIPASE+C.LAB.BRZ ordered. EDMS EDMS 11:30 11:30 UA Rfx Óscar Cult if indicated+U.LAB.BRZ ordered. EDMS EDMS 20:48 14:59 Telemetry/MedSurg (observation) [facility] cg 20:48 14:59 [facility] cg 10/22 07:00 10/21 20:48 [facility] ER HOLD cg [facility] 10/22 07:00 10/21 20:48 ERHOLD- cg [facility] 10/22 07:28 07:00 Telemetry/MedSurg (observation) [facility] ss 07:28 07:00 202 [facility] ss 07:28 07:28 ss ss 10:18 07:28 [facility] ER HOLD ss bd 10:18 07:28 ERHOLD- ss bd
[2024-10-21] MEDS ORDERED: ACETAMINOPHEN 325 MG TABLET PO PRN (16:20)
--- NOTE | 2024-10-21 16:37 | P.HP ---
Certification for Inpatient Patient admitted to: Inpatient With expected LOS: >2 Midnights Practitioner: I am a practitioner with admitting privileges, knowledge of patient current condition, hospital course, and medical plan of care. Services: Services provided to patient in accordance with Admission requirements found in Title 42 Section 412.3 of the Code of Federal Regulations Patient History Date of Service: 10/21/24 Reason for admission: Acute sigmoid diverticulitis with microperforation History of Present Illness: Celso Resendiz is a 39-year-old male with no significant past medical history who presents to the ED with diffuse lower abdominal pain for a few days with diarrhea. He reports his last BM was this morning and diarrhea consistency. WBC 15.3, T. bili 1.8, alk phos 129, UA negative for infectious process. CT abdomen pelvis reports "Sigmoid diverticulitis with localized microperforation. No abscess or bowel obstruction." Celso will be admitted to hospitalist service for further treatment and monitoring of sigmoid diverticulitis with microperforation. Dr. Campos consulted. Allergies promethazine HCl [From Phenergan] Allergy (Unverified 02/06/15 11:01) Unknown tramadol Allergy (Unverified 02/06/15 11:01) Unknown - Past Medical/Surgical History Past Medical History: Patient denies medical history Past Surgical History: Patient denies surgical history - Social History Smoking Status: Never smoker Alcohol use: No CD- Drugs: No Review of Systems Other: Per HPI Physical Examination - Physical Exam General: Alert, In no apparent distress, Oriented x3 HEENT: Atraumatic, Normocephalic Neck: Supple, 2+ carotid pulse no bruit, JVD not distended Respiratory: Clear to auscultation bilaterally, Normal air movement Cardiovascular: Normal pulses, Regular rate/rhythm, Normal S1 S2 Capillary refill: <2 Seconds Gastrointestinal: Soft and benign, Tenderness (Diffuse lower abdomen) Musculoskeletal: No clubbing Integumentary: No rashes Neurological: Normal tone - Studies Laboratory Data (last 24 hrs) 10/21/24 10/21/24 13:03 13:03 WBC 15.30 H Hgb 15.8 Hct 44.4 Plt Count 305 Sodium 137 Potassium 3.5 BUN 13 Creatinine 1.09 Glucose 105 Total Bilirubin 1.8 H AST 16 ALT 45 Alkaline Phosphatase 129 H Lipase 23 Assessment and Plan - Plan Assessment and plan Acute sigmoid diverticulitis with microperforation Diarrhea Elevated elevated bilirubin likely secondary to dehydration -Consulted Dr. Andres Huerta and Rikki -Protonix twice daily -N.p.o. with ice chips -Gentle IV fluid -Follow bilirubin DVT PPx SCDs Full code LOS 2 to 3 days - Advance Directives Does patient have a Living Will: No Does patient have a Durable POA for Healthcare: No
[2024-10-21] MEDS: PANTOPRAZOLE 40 MG INJ IVP SCH (16:38)
[2024-10-21] MEDS ORDERED: SODIUM CHLORIDE 0.9% 10ML INJ IV PRN (16:38)
[2024-10-21] MEDS: METRONIDAZOLE 500mg IVPB 500 MG/100 ML BAG IV SCH (17:00)
[2024-10-21] MEDS: NA CHLORIDE 0.9% 1,000 ML IV SCH (17:00)
[2024-10-21 17:14] VITALS: BMI 31.4
[2024-10-21] MEDS ORDERED: PANTOPRAZOLE 40 MG INJ ONE (17:21)
[2024-10-21] MEDS ORDERED: METRONIDAZOLE 500mg IVPB 500 MG/100 ML BAG IV ONE (17:21)
[2024-10-21] MEDS ORDERED: HYDROMORPHONE HCL 1 MG/ML INJ ONE ×2 (18:33→23:56)
[2024-10-21] MEDS: HYDROMORPHONE HCL 1 MG/ML INJ IV PRN (18:39)
[2024-10-21] MEDS: CIPROFLOXACIN 400mg IV 400 MG/200 ML BAG IV SCH (21:00)
[2024-10-21] MEDS ORDERED: CIPROFLOXACIN 400mg IV 400 MG/200 ML BAG IV ONE (23:38)
[2024-10-22] MEDS ORDERED: METRONIDAZOLE 500mg IVPB 500 MG/100 ML BAG IV ONE ×2 (02:45→09:32)
[2024-10-22] MEDS ORDERED: NA CHLORIDE 0.9% 1,000 ML ONE (02:54)
[2024-10-22] MEDS ORDERED: HYDROMORPHONE HCL 1 MG/ML INJ ONE ×2 (04:19→10:17)
[2024-10-22 04:58] LABS: Absolute Eosinophils 0.2 K/uL (0-0.5); Absolute Lymphocytes (CBC) 1.7 K/uL (0.7-4.9); Absolute Neutrophil 6.4 K/uL (1.8-8.0); Basophils % 0.5 % (0-1.3); Eosinophils % 2.5 % (0-4.4); Hemoglobin 13.3 g/dL (13.6-17.9); Lymphocytes % 18.5 % (15.3-44.8); MCH 31.7 pg (27.0-35.0); MCHC 35.9 g/dL (32.0-36.0); MCV 88.3 fL (80-100); Monocytes % 10.2 % (3.3-12.3); Neutrophils % 68.3 % (41.7-73.7); Nucleated Red Blood Cells % 0.1 % (0-0); Platelets 253 thou/uL (152-406); RBC Red Blood Cell Count 4.19 M/uL (4.33-5.43); Red Cell Distribution Width 13.2 % (12.1-15.2)
[2024-10-22 05:30] LABS: Albumin 3.1 g/dL (3.4-5.0); Albumin/Globulin Ratio 0.9 (1.1-1.8); Anion Gap 10.7 mEq/L (5.0-15.0); Globulin 3.5 g/dL (2.3-3.5); Phosphorus 2.8 mg/dL (2.5-4.9); Potassium 3.7 mEq/L (3.5-5.1); Protein, Total 6.6 g/dL (6.4-8.2)
[2024-10-22] MEDS: KCL 20 MEQ/100 mL IVPB 20 MEQ/100 ML BAG IV ONE (07:00)
[2024-10-22] MEDS ORDERED: KCL 20 MEQ/100 mL IVPB 100 ML IV ONE (07:09)
[2024-10-22] MEDS ORDERED: CIPROFLOXACIN 400mg IV 400 MG/200 ML BAG IV ONE (09:32)
[2024-10-22] MEDS ORDERED: PANTOPRAZOLE 40 MG INJ ONE (09:32)
[2024-10-22 11:39] VITALS: O2SAT 100
--- NOTE | 2024-10-22 12:19 | CON ---
Date of Consultation: 10/22/2024 Reason For Consult: Abdominal pain. History Of Present Illness: The patient is a 39-year-old gentleman, who comes in with 4-day history of lower abdominal pain associated with diarrhea. He denies any blood per rectum. He also had const ipation prior to the diarrhea. He denies any dysuria, hematuria. No sore throat, runny nose, cough, headaches, or dizziness. No chest pain. No fever, but he does have chills. He has ever had pain l rebel this before. When he was young, he had some multiple colonoscopies for nonspecific abdominal mili n, which turned out to be issues with his appendix. There is no family history of colorectal maligna ncy, although the mother does have a history of diverticulitis. Review of Systems: Otherwise unremarkable. Past Medical History: Negative. Past Surgical History: Umbilical hernia repair, appendectomy, and tonsillectomy. Allergies: NONE. Social History: The patient does not smoke. He does vape. He does not drink. Family History: Significant for heart disease in grandparents. Physical Examination: Vital Signs: Currently are stable. He is afebrile. General: He is awake, alert, oriented x3. Head and Neck: No neck masses. No JVD. Throat clear. Neck is supple. Chest: Clear. Heart: S1, S2. Abdomen: Soft, nondistended. Positive bowel sounds. Positive left lower quadrant and suprapubic te nderness. No rebound. No rigidity or guarding. Extremities: Adequately perfused, nontender. Neuro: Nonfocal. Laboratories: His white count on admission was 15.3 with a left shift today 9.3 . Hand Shoe Cutter ry reviewed, essentially unremarkable. CT of the abdomen and pelvis reviewed shows sigmoid diverticu litis with localized microperforation. No abscess or bowel obstruction and this is in the mid sigmoi d colon. Assessment: Acute sigmoid diverticulitis, complicated by microperforation without any abscess or per itonitis at this time. Recommendations: Admit n.p.o. except for ice chips, IV fluids, IV antibiotics. I will start him on clear liquids tomorrow or later today depending upon the patient's progress and then the patient can be converted to oral antibiotics as an outpatient for 2 weeks. He will need a colonoscopy in 4-6 wee ks via GI specialist and then given the complexity of his diverticular disease, he would benefit from evaluation by colorectal surgeon for elective segmental colon resection. YOUNG/JESSIE Voice ID: [id number] Report ID: [id number]
--- NOTE | 2024-10-22 19:14 | P.PN ---
Date of Service: 10/22/24 Subjective Awake, still with some abdominal pain remains NPO today, and CLD tomorrow 10/22 ROS 10 point ROS as noted above, otherwise negative Physical Exam General: Alert and oriented x3, NAD HEENT: Atraumatic, Normocephalic Neck: Supple, 2+ carotid pulse no bruit, JVD not distended Respiratory: Clear BBS, Normal air movement, on room air Cardiovascular: Normal pulses, RRR, Normal S1 S2 Capillary refill: <2 Seconds Gastrointestinal: Soft and benign, Tenderness (Diffuse lower abdomen) Musculoskeletal: No clubbing Integumentary: No rashes Neurological: Normal tone Vitals Reviewed Problem list Acute sigmoid diverticulitis with microperforation Diarrhea Elevated elevated bilirubin likely secondary to dehydration Assessment and Plan Acute sigmoid diverticulitis with microperforation Diarrhea Elevated elevated bilirubin likely secondary to dehydration -Dr. Sales following- Antibiotics for 2 weeks, colonoscopy in 4-6 weeks, colorectal surgeon for elective segmental colon resection -Continue Cipro and Flagyl -Continue Protonix twice daily -N.p.o. with ice chips, CLD in the a.m. -Gentle IV fluid -Follow bilirubin, cleared at 1.0 DVT PPx SCDs Full code Full code LOS 2 to 3 days
[2024-10-23 07:45] LABS: Anion Gap 10.8 mEq/L (5.0-15.0); Potassium 3.8 mEq/L (3.5-5.1)
[2024-10-23 07:47] LABS: Hematocrit 38.2 % (39.6-49.0); Hemoglobin 13.5 g/dL (13.6-17.9); MCHC 35.2 g/dL (32.0-36.0); MPV 9.9 fL (7.6-11.3); Platelets 256 thou/uL (152-406); RBC Red Blood Cell Count 4.35 M/uL (4.33-5.43); Red Cell Distribution Width 12.7 % (12.1-15.2)
--- NOTE | 2024-10-23 11:46 | PN ---
Date of Progress Note: 10/23/2024 Subjective: The patient is awake, alert. Still in pain. Objective: Vital Signs: Stable, afebrile. Abdomen: draw frame tender in the suprapubic and left lower quadrant. Laboratory Data: White count is normal. Assessment: Acute sigmoid diverticulitis with microperforation. Recommendations: Continue n.p.o. with ice chips. May begin sips of clear liquids if the patient's c linical condition improves over the next 24 hours. We will get Dietary consultation for dietary kyara fication once the patient is eating. Continue IV antibiotics for the time being. The patient will n eed an outpatient colonoscopy, followed by a colorectal surgeon evaluation for segmental resection of the colon. /MODL Voice ID: [id number] Report ID: [id number]
--- NOTE | 2024-10-23 14:22 | P.PN ---
Date of Service: 10/23/24 Subjective Awake, still with some abdominal pain No acute events overnight ROS 10 point ROS as noted above, otherwise negative Physical Exam General: Alert and oriented x3, NAD HEENT: Atraumatic, Normocephalic Neck: Supple, 2+ carotid pulse no bruit, JVD not distended Respiratory: Clear BBS, Normal air movement, on room air Cardiovascular: Normal pulses, RRR, Normal S1 S2 Capillary refill: <2 Seconds Gastrointestinal: Soft and benign, Tenderness (Diffuse lower abdomen) Musculoskeletal: No clubbing Integumentary: No rashes Neurological: Normal tone Vitals Reviewed Problem list Acute sigmoid diverticulitis with microperforation Diarrhea Elevated elevated bilirubin likely secondary to dehydration Assessment and Plan Acute sigmoid diverticulitis with microperforation Diarrhea Elevated elevated bilirubin likely secondary to dehydration -Dr. Sales following- Antibiotics for 2 weeks, colonoscopy in 4-6 weeks, colorectal surgeon for elective segmental colon resection -Continue Cipro and Flagyl -Continue Protonix twice daily -N.p.o. with ice chips, possible liquid diet sips this evening versus tomorrow depending on reexamination of patient -Gentle IV fluid -Follow bilirubin, cleared at 1.0 DVT PPx SCDs Full code Full code LOS 2 to 3 days
[2024-10-24 05:50] LABS: Hematocrit 37.9 % (39.6-49.0); Hemoglobin 13.5 g/dL (13.6-17.9); MCH 31.1 pg (27.0-35.0); MCHC 35.5 g/dL (32.0-36.0); MCV 87.4 fL (80-100); MPV 9.4 fL (7.6-11.3); Platelets 289 thou/uL (152-406); RBC Red Blood Cell Count 4.33 M/uL (4.33-5.43); Red Cell Distribution Width 12.8 % (12.1-15.2)
[2024-10-24] MEDS ORDERED: HYDROCODONE/APAP 7.5/325 MG TAB PO PRN (08:39)
--- NOTE | 2024-10-24 09:07 | PN ---
Date of Progress Note: 10/24/2024 Subjective: The patient is awake, alert. No pain. Tolerating clear liquids. Objective: Vital Signs: Stable, afebrile. Abdomen: Soft, nondistended, nontender. Positive bowel sounds. Laboratory Data: White count is 5.4, there is no left shift. Assessment: Acute sigmoid diverticulitis with microperforation. Recommendations: Advance diet as tolerated to a low-fiber diet. The patient is cleared from Surgery for discharge. Continue Cipro and Flagyl for 2 weeks. Follow up with GI in 4 to 6 weeks and also h ave a colorectal evaluation after that for possible segmental colon resection. /MODL Voice ID: [id number] Report ID: [id number]
--- NOTE | 2024-10-24 09:31 | P.DS ---
Admission Date: 10/21/24 Discharge Date: 10/24/24 Disposition: ROUTINE DISCHARGE Discharge Condition: GOOD Reason for Admission: Acute sigmoid diverticulitis with microperforation Brief History of Present Illness: Celso Resendiz is a 39-year-old male with no significant past medical history who presents to the ED with diffuse lower abdominal pain for a few days with diarrhea. He reports his last BM was this morning and diarrhea consistency. WBC 15.3, T. bili 1.8, alk phos 129, UA negative for infectious process. CT abdomen pelvis reports "Sigmoid diverticulitis with localized microperforation. No abscess or bowel obstruction." Celso will be admitted to hospitalist service for further treatment and monitoring of sigmoid diverticulitis with microperforation. Dr. Campos consulted. Hospital Course: Patient was admitted to the hospital for acute diverticulitis with microperforation. He was started on IV antibiotics and kept n.p.o., treated conservatively and had improvement in his symptoms. His white blood cell count is within normal limits, he is afebrile. Patient was evaluated by general surgery who recommends follow-up with GI in 4 to 6 weeks for colonoscopy and follow-up with colorectal surgeon following this to consider possible short segment resection given significant diverticulosis. Prescriptions for antibiotics Cipro/Flagyl for 2 weeks sent to the pharmacy As needed pain medications also sent to the pharmacy Low fiber diet per the dietary recommendations Follow-up GI for colonoscopy in 4 to 6 weeks Follow-up with colorectal surgeon after GI evaluation Activity as tolerated Vital Signs/Physical Exam: Temp Pulse Resp BP Pulse Ox 98.2 F 74 16 136/67 97 10/24/24 08:00 10/24/24 08:00 10/24/24 08:00 10/24/24 08:00 10/24/24 08:00 General: Alert, In no apparent distress, Oriented x3 HEENT: Atraumatic, PERRLA Neck: Supple, JVD not distended Respiratory: Clear to auscultation bilaterally, Normal air movement Cardiovascular: Regular rate/rhythm, Normal S1 S2 Gastrointestinal: Normal bowel sounds, Tenderness (Mild lower abdominal tenderness) Musculoskeletal: No tenderness Integumentary: No rashes Neurological: Normal speech, Normal affect Laboratory Data at Discharge: WBC 5.40 thou/uL (4.3-10.9) 10/24/24 05:43 Hgb 13.5 g/dL (13.6-17.9) L 10/24/24 05:43 Hct 37.9 % (39.6-49.0) L 10/24/24 05:43 Plt Count 289 thou/uL (152-406) 10/24/24 05:43 Sodium 140 mEq/L (136-145) 10/23/24 07:19 Potassium 3.8 mEq/L (3.5-5.1) 10/23/24 07:19 BUN 8 mg/dL (7-18) 10/23/24 07:19 Creatinine 0.85 mg/dL (0.70-1.30) 10/23/24 07:19 Glucose 82 mg/dL (74-106) 10/23/24 07:19 Phosphorus 2.8 mg/dL (2.5-4.9) 10/22/24 04:30 Magnesium 2.0 mg/dL (1.6-2.4) 10/22/24 04:30 Total Bilirubin 1.0 mg/dL (0.2-1.0) 10/22/24 04:30 AST 15 U/L (15-37) 10/22/24 04:30 ALT 33 U/L (16-61) 10/22/24 04:30 Alkaline Phosphatase 102 U/L (45-117) D 10/22/24 04:30 Lipase 23 U/L (13-75) 10/21/24 13:03 Home Medications: Ciprofloxacin HCl 500 mg PO BID #28 tab 10/24/24 Hydrocodone 7.5/APAP 325 [[place] 7.5/325 mg] 1 tab PO Q6H PRN #15 tab 10/24/24 metroNIDAZOLE [Flagyl] 500 mg PO Q8H 14 Days #42 tab 10/24/24 New Medications: Ciprofloxacin HCl 500 mg PO BID #28 tab metroNIDAZOLE [Flagyl] 500 mg PO Q8H 14 Days #42 tab Hydrocodone 7.5/APAP 325 [[place] 7.5/325 mg] 1 tab PO Q6H PRN #15 tab PRN Reason: Pain Physician Discharge Instructions: Patient was admitted to the hospital for acute diverticulitis with microperforation. He was started on IV antibiotics and kept n.p.o., treated conservatively and had improvement in his symptoms. His white blood cell count is within normal limits, he is afebrile. Patient was evaluated by general surgery who recommends follow-up with GI in 4 to 6 weeks for colonoscopy and follow-up with colorectal surgeon following this to consider possible short segment resection given significant diverticulosis. Prescriptions for antibiotics Cipro/Flagyl for 2 weeks sent to the pharmacy As needed pain medications also sent to the pharmacy Low fiber diet per the dietary recommendations Follow-up GI for colonoscopy in 4 to 6 weeks Follow-up with colorectal surgeon after GI evaluation Activity as tolerated Diet: Low fiber Activity: Ad luisana Followup: NONE,NONE [Primary Care Provider] - 1-2 Weeks Duane Sales MD [ACTIVE - CAN ADMIT] - 1-2 Weeks Time spent managing pt's care (in minutes): 45
[2024-10-24 12:06] VITALS: BP 113/60; TEMP 98.1
== END 2024-10-24 13:25 | disposition home or self-care (01) | DRG 392 ==
LOC: ER 11:05 → ERHOLD 16:14 → OBSVTOIN 16:14 → 2ND 10-22 10:41
PROVIDERS: ADMIT Internal Medicine; ATTEND Hospitalist
DX: K57.20 Diverticulitis of large intestine with perforation and abscess without bleeding (principal); E86.0 Dehydration; Z88.5 Allergy status to narcotic agent; Z90.49 Acquired absence of other specified parts of digestive tract
CPT/HCPCS: 36415; 74177; 80048; 80053; 81001; 82947; 83690; 83735; 84100; 85025; 85027; 96361; 96365; 96366; 96375; 99285; J0744; J1171; J2405; J2470; J2543; J3480; J7030; Q9967